=== PATIENT | male | born 1995 | race Two or more races ===

== ENCOUNTER 2022-06-29 20:24 | Emergency (ER) | payer SELFPAY ==
[~2022-06-29] VITALS: Ht 195.6 cm; Wt 120.0 kg
[2022-06-29 21:05] LABS: BASOPHILS # (AUTO) 0.1 X10'3 (0-0.2); BASOPHILS % (AUTO) 0.7 % (0-1); EOSINOPHILS # (AUTO) 0.3 X10'3 (0-0.9); EOSINOPHILS % (AUTO) 3.2 % (0-6); HEMATOCRIT 44.4 % (42.0-52.0); HEMOGLOBIN 15.7 g/dl (14.0-17.9); LYMPHOCYTES # (AUTO) 2.9 X10'3 (1.1-4.8); LYMPHOCYTES % (AUTO) 26.8 % (21-51); MEAN CORPUSCULAR HEMOGLOBIN 29.4 PG (27.0-31.0); MEAN CORPUSCULAR HGB CONC 35.3 g/dL (33.0-36.5); MEAN CORPUSCULAR VOLUME 83.1 FL (78-98); MEAN PLATELET VOLUME 8.8 FL (7.4-10.4); MONOCYTES # (AUTO) 0.7 X10'3 (0-0.9); MONOCYTES % (AUTO) 6.1 % (2-12); NEUTROPHILS # (AUTO) 6.9 X10'3 (1.8-7.7); NEUTROPHILS % (AUTO) 63.2 % (42-75); PLATELET COUNT 235 X10'3 (140-440); RED BLOOD COUNT 5.35 X10'6 (4.70-6.10); RED CELL DISTRIBUTION WIDTH 13.5 % (11.5-14.5); WHITE BLOOD COUNT 10.9 X10'3 (4.5-11.0)
[2022-06-29 21:10] LABS: CLARITY,URINE CLEAR (Clear); COLOR,URINE YELLOW (Yellow); GLUCOSE, URINE NEGATIVE (Neg); KETONES,URINE NEGATIVE (Neg); LEUKOCYTE ESTERASE ,URINE NEGATIVE (Neg); NITRITES, URINE NEGATIVE (Neg); OCCULT BLOOD,URINE NEGATIVE (Neg); PH,URINE 7.5 (4.8-8.0); PROTEIN,URINE NEGATIVE (Neg); UROBILINOGEN,URINE 0.2 E.U/dL (0.2-1.0)
[2022-06-29 21:14] LABS: UA COLLECTION TYPE CLN CATCH MIDSTREAM
[2022-06-29 21:17] LABS: ALANINE AMINOTRANSFERASE 50 U/L (12-78); ALBUMIN 4.1 G/DL (3.4-5.0); ALKALINE PHOSPHATASE 101 IU/L (46-116); ANION GAP 10 (8-16); ASPARTATE AMINO TRANSFERASE 24 U/L (10-37); BILIRUBIN,TOTAL 0.8 MG/DL (0.1-1.0); BLOOD UREA NITROGEN 17 MG/DL (7-18); BUN/CREATININE RATIO 11.4 (5.4-32.0); CHLORIDE 103 MMOL/L (99-107); CREATININE 1.49 MG/DL (0.60-1.10); GLUCOSE 103 MG/DL (70-104); POTASSIUM 3.7 MMOL/L (3.5-5.1); SODIUM 140 MMOL/L (135-145); TOTAL CARBON DIOXIDE 27.4 MMOL/L (24-32); TOTAL PROTEIN 8.1 G/DL (6.4-8.2); eGFR 57 ML/MIN
[2022-06-29 21:22] LABS: URINE AMPHETAMINE SCREEN NEGATIVE (Neg); URINE BARBITUATE SCREEN NEGATIVE (Neg); URINE BENZODIAZEPINES SCREEN NEGATIVE (Neg); URINE CANNABINOID SCREEN NEGATIVE (Neg); URINE COCAINE SCREEN NEGATIVE (Neg); URINE METHADONE SCREEN NEGATIVE (Neg); URINE OPIATE SCREEN NEGATIVE (Neg); URINE PHENCYCLIDINE SCREEN NEGATIVE (Neg)
[2022-06-29 21:24] LABS: ETHANOL < 0.010 GM/DL (0.0-0.010)
[2022-06-29] MEDS ORDERED: ketorolac trometh inj. 60 MG/2 ML VIAL IM ONE (23:15)
[2022-06-29 23:32] VITALS: BP 135/89
== END 2022-06-29 23:36 | disposition home or self-care (01) ==
LOC: ER 20:26
DX: M25.511 Pain in right shoulder (principal); R11.0 Nausea; J45.909 Unspecified asthma, uncomplicated
CPT/HCPCS: 36415; 73030; 80053; 80305; 80320; 81003; 85025; 93005; 96372; 99285; J1885

== ENCOUNTER 2025-02-28 22:35 | Emergency (ER) | payer BC, SELFPAY ==
[~2025-02-28] VITALS: Ht 195.6 cm; Wt 130.1 kg
[2025-02-28 22:38] VITALS: TEMP 98.4
[2025-02-28 22:59] LABS: BASOPHILS # (AUTO) 0.1 X10'3 (0-0.2); BASOPHILS % (AUTO) 0.6 % (0-1); EOSINOPHILS # (AUTO) 0.4 X10'3 (0-0.9); EOSINOPHILS % (AUTO) 4.7 % (0-6); HEMATOCRIT 44.6 % (42.0-52.0); HEMOGLOBIN 15.3 g/dl (14.0-17.9); LYMPHOCYTES % (AUTO) 32.7 % (21-51); MEAN CORPUSCULAR HEMOGLOBIN 28.8 PG (27.0-31.0); MEAN CORPUSCULAR HGB CONC 34.2 g/dL (33.0-36.5); MEAN CORPUSCULAR VOLUME 84.1 FL (78-98); MEAN PLATELET VOLUME 9.8 FL (7.4-10.4); MONOCYTES # (AUTO) 0.6 X10'3 (0-0.9); MONOCYTES % (AUTO) 6.9 % (2-12); NEUTROPHILS % (AUTO) 55.1 % (42-75); PLATELET COUNT 206 X10'3 (140-440); RED CELL DISTRIBUTION WIDTH 14.3 % (11.5-14.5); WHITE BLOOD COUNT 9.1 X10'3 (4.5-11.0)
--- NOTE | 2025-02-28 23:09 | RADIOLOGY REPORT ---
Procedure: DI CHEST,SINGLE VIEW 02/28/2025 10:51 PM Indication: CP Comparison: None TECHNIQUE: DI CHEST,SINGLE VIEW FINDINGS/IMPRESSION: The lungs are clear. The cardiomediastinal silhouette is unremarkable. No pleural effusion or pneumo thorax. No acute osseous abnormality.
[2025-02-28 23:15] LABS: ALBUMIN 4.3 G/DL (3.4-5.0); ANION GAP 8 (8-16); BLOOD UREA NITROGEN 15 MG/DL (7-18); BUN/CREATININE RATIO 10.2 (10.0-20.0); CALCIUM 8.9 MG/DL (8.5-10.1); CHLORIDE 100 MMOL/L (99-107); CREATININE 1.47 MG/DL (0.60-1.10); GLUCOSE 96 MG/DL (70-104); POTASSIUM 3.6 MMOL/L (3.5-5.1); PRO BRAIN NATRIURETIC PEPTIDE < 30 PG/ML (0-125); SODIUM 138 MMOL/L (135-145); TOTAL CARBON DIOXIDE 29.8 MMOL/L (24-32); eCRCL 93 ML/MIN; eGFR 57 ML/MIN
[2025-03-01] MEDS ORDERED: ALBU18HF2 PO (02:11)
--- NOTE | 2025-03-01 02:17 | Physician Documentation ---
History of Present Illness ~ Chief Complaint: Chest Pain Stated Complaint: CHEST PAIN Time Seen by MD: 02:03 Mode of Arrival: POV, Ambulatory HPI Patient presents to the emergency room for evaluation of chest pain. Patient states she started walking up some stairs when he suddenly felt sharp pain in his left sternal border. Regarding to his house he sat down and rested and it continued therefore he decided he would become evaluate. He also describes a vague sensation of some numbness in his GI and some nausea. Pain is exacerbated with palpation and relieved by nothing. He does not smoke and denies history of blood pressure cholesterol or diabetes or first-degree relative with heart disease. Denies one-sided leg pain. Medication Reconciliation Allergies: Coded Allergies: No Known Allergies (Unverified , 02/28/25) Scheduled PRN Albuterol Sulfate (Ventolin Hfa), 2 PUFFS PO Q6H PRN for BRONCHITIS, (Reported) Past Medical History Past Medical History: Asthma Past Surgical History: noncontributory Alcohol Use: None Drug Use: none Review of Systems ROS All review of systems negative except as per HPI Physical Exam Vital Signs: Temperature: 98.4, Heart Rate: 55, Respiratory Rate: 18, BP: 136/81, Pulse Oximetry: 99, Weight: 130.100 Oxygen Flow Rate: 0 Physical Exam General: Patient is awake, alert, oriented x4 in no acute distress and well appearing.~ Head: Normocephalic and atraumatic. Eyes: Conjunctival normal. EOMI. PERRL. ENT: Mucous membranes moist. Neck: Supple, trachea is midline. Chest: Clear to auscultation bilaterally without rales, rhonchi, or wheezes. There is no accessory muscle use or retractions. Tenderness to palpation to left sternal border Cardiac: RRR without murmurs, gallops, or rubs. Extremities: Normal strength. Normal range of motion. No deformities or edema. No calf tenderness to palpation Progress Results/Orders Results/Orders Orders - REED GARCIA MD Chest,Single View (02/28/25 22:37) Monitor (02/28/25 22:37) Saline Lock (02/28/25 22:37) Oxygen (02/28/25 22:37) Electrocardiogram (02/28/25 22:37) Completed Orders - REED GARCIA MD Chest,Single View (02/28/25 22:37) Cbc/Diff (02/28/25 22:37) BMP (02/28/25 22:37) PBNP (02/28/25 22:37) Hs Troponin I W Calculations (02/28/25 22:37) Hs Troponin I W Calculations (03/01/25 00:37) Hs Troponin I W Calculations (03/01/25 01:37) Vital Signs 02/28/25 02/28/25 03/01/25 03/01/25 22:38 23:13 00:21 02:02 Temp 98.4 Pulse 61 56 55 Resp 16 16 15 18 B/P (MAP) 143/80 134/73 (93) 136/81 (99) Pulse Ox 100 99 99 O2 Flow Rate 0 Laboratory Tests Test 02/28/25 22:45 03/01/25 00:47 03/01/25 01:30 White Blood Count 9.1 Red Blood Count 5.30 Hemoglobin 15.3 Hematocrit 44.6 Mean Corpuscular Volume 84.1 Mean Corpuscular Hemoglobin 28.8 Mean Corpuscular Hemoglobin Concent 34.2 Red Cell Distribution Width 14.3 Platelet Count 206 Mean Platelet Volume 9.8 Neutrophils (%) (Auto) 55.1 Lymphocytes (%) (Auto) 32.7 Monocytes (%) (Auto) 6.9 Eosinophils (%) (Auto) 4.7 Basophils (%) (Auto) 0.6 Neutrophils # (Auto) 5.0 Lymphocytes # (Auto) 3.0 Monocytes # (Auto) 0.6 Eosinophils # (Auto) 0.4 Basophils # (Auto) 0.1 CBC Comment Sodium Level 138 Potassium Level 3.6 Chloride Level 100 Carbon Dioxide Level 29.8 Anion Gap 8 Blood Urea Nitrogen 15 Creatinine 1.47 H Estimated GFR/1.73 m2 57 BUN/Creatinine Ratio 10.2 Glucose Level 96 Calcium Level 8.9 Troponin I High Sensitivity 20 19 22 Pro-B-Type Natriuretic Peptide < 30 Albumin 4.3 Chemistry Comments Troponin I High Sens Percent Delta 5 15 Troponin I Hi Sens Absolute Change -1 3 EKG/XRAY/CT/US/VASC/MRI EKG : Additional Comment EKG interpreted by myself shows time of 11/01/2040, rate 57, sinus bradycardia, normal axis, nonspecific T-wave changes Chest X-Ray : Additional Comments Exam: CHEST,SINGLE VIEW Procedure: DI CHEST,SINGLE VIEW 02/28/2025 10:51 PM Indication: CP Comparison: None TECHNIQUE: DI CHEST,SINGLE VIEW FINDINGS/IMPRESSION: The lungs are clear. The cardiomediastinal silhouette is unremarkable. No pleural effusion or pneumothorax. No acute osseous abnormality. Medical Decision Making Findings Patient presents to the emergency room for evaluation of chest pain as per HPI. Differentials include but are not limited to ACS, costochondritis, pulmonary embolism, acute aortic pathology, pneumothorax therefore emergent labs and imaging indicated. Chest x-ray is reassuring and troponins negative x3. The patient's chest pain is atypical and he has a reassuring heart score of one. No calf tenderness with no tachycardia or hypoxia and he had not feel he requires investigation into pulmonary embolism. I did discuss with him his bradycardia but he states his heart rate is always low. ER precautions discussed Departure Disposition: 01 HOME / SELF CARE / HOMELESS Impression: Primary Impression: Chest wall pain Condition: Stable Discharge Instructions: Chest Wall Pain Referrals: NO PRIMARY CARE PROVIDER (PCP) Signature Scribe Signature: No scribe Attestation: The note accurately reflects work and decisions made by me.Reed Garcia MD 03/01/25 02:17 REED GARCIA MD Mar 01, 2025 02:17
[2025-03-01 02:25] VITALS: BP 132/80; PULSE 58; RESP 12; O2SAT 99
--- NOTE | 2025-03-01 08:11 | ELECTROCARDIOGRAPH REPORT ---
[facility] Test Date: 2025-02-28 Test Time: 22:41:43 Pat Name: ALONSO SIMPSON Department: EMERGENCY ROOM Room: Gender: M Internet Webmaster: LEON : 1995 Requested By: LUCY VERA Order Number: [id number] Reading MD: Measurements Intervals [place] Rate: 57 P: 45 WA: 162 QRS: 88 QRSD: 102 T: 53 QT: 422 QTc: 411 Interpretive Statements Sinus bradycardia LAE, consider biatrial enlargement Please click the below link to view image of tracing.
== END 2025-03-01 02:27 | disposition home or self-care (01) ==
LOC: ER 22:35
DX: R07.89 Other chest pain (principal); J45.909 Unspecified asthma, uncomplicated
CPT/HCPCS: 36415; 71045; 80048; 83880; 84484; 85025; 93005; 99285